=== PATIENT | male | born 1950 | race Caucasian/White ===

== ENCOUNTER 2020-05-10 15:18 | Emergency (ER) | payer OTHER ==
[2020-05-10 15:32] VITALS: BP 141/81; PULSE 84; TEMP 98.7; BMI 22.6
[2020-05-10 16:58] LABS: BASO % 0.5 % (0-2.0); EOS % 2.3 % (0-4.5); HEMATOCRIT 27.6 % (35.4-49); HEMOGLOBIN 8.8 GM/dl (11.7-16.9); LYMPH % 3.1 % (8-40); MCH 26.1 pg (25.7-33.7); MEAN CELL VOLUME 81.7 fl (80-96); MEAN PLT VOLUME 7.4 fl (7.5-11.1); MONO % 8.1 % (3.8-10.2); PLATELET COUNT 415 K/MM3 (134-434); RBC 3.37 M/mm3 (4.00-5.60); RDW 15.1 % (11.9-15.9); WHITE BLOOD COUNT 9.8 K/mm3 (4.0-10.8)
[2020-05-10 17:07] LABS: ALBUMIN 3.1 g/dl (3.4-5.0); BILIRUBIN,TOTAL 0.5 mg/dl (0.2-1); CALCIUM 8.4 mg/dl (8.5-10); CREATININE 0.8 mg/dl (0.55-1.3); MAGNESIUM 2.1 mg/dL (1.8-2.4); POTASSIUM 4.5 mmol/L (3.5-5.1); TOT PROT 5.9 g/dl (6.4-8.2)
== END 2020-05-10 18:13 | disposition home or self-care (01) ==
LOC: FER 15:18
DX: R19.7 Diarrhea, unspecified (principal); D64.9 Anemia, unspecified
CPT/HCPCS: 36415; 80053; 83735; 84443; 85025; 87045; 87046; 87177; 87205; 87209; 87324; 87449; 99284-25; C9803; U0003